=== PATIENT | male | born 1955 | race Two or more races ===

== ENCOUNTER 2025-01-27 15:35 | Emergency (ER) | payer MEDICARE, OTHER ==
[~2025-01-27] VITALS: Ht 157.5 cm; Wt 70.3 kg
[2025-01-27 16:25] LABS: PLATELET COUNT (AUTO) 389 K/uL (150-450); RED BLOOD CELL COUNT(AUTO) 3.57 MIL/uL (4.5-6.0); RED CELL DISTRIBUTION WIDTH 16.5 % (11.5-15.0); WHITE BLOOD COUNT (AUTO) 11.4 K/uL (4.3-11.0)
[2025-01-27 16:34] LABS: CALCIUM, SERUM 8.9 mg/dL (8.5-10.1); CREATININE 5.3 mg/dL (0.6-1.3); SODIUM SERUM 133.0 mmol/L (136-145); UREA NITROGEN, BLOOD 40.0 mg/dL (7-18)
[2025-01-27 21:15] VITALS: BP 122/60; TEMP 98.2; O2SAT 97
== END 2025-01-27 21:15 ==
LOC: ER 15:40
DX: I12.0 Hypertensive chronic kidney disease with stage 5 chronic kidney disease or end stage renal disease (principal); E11.22 Type 2 diabetes mellitus with diabetic chronic kidney disease; N18.6 End stage renal disease; D72.829 Elevated white blood cell count, unspecified; E78.5 Hyperlipidemia, unspecified; F03.90 Unspecified dementia, unspecified severity, without behavioral disturbance, psychotic disturbance, mood disturbance, and anxiety; G82.50 Quadriplegia, unspecified; J44.9 Chronic obstructive pulmonary disease, unspecified; K21.9 Gastro-esophageal reflux disease without esophagitis; N40.0 Benign prostatic hyperplasia without lower urinary tract symptoms; Z99.2 Dependence on renal dialysis; Z86.79 Personal history of other diseases of the circulatory system; Z86.59 Personal history of other mental and behavioral disorders
CPT/HCPCS: 36415; 80048-TC; 83735-TC; 85025-TC